=== PATIENT | female | born 1975 | race Caucasian/White ===

== ENCOUNTER 2020-08-30 23:36 | Emergency (ER) | payer BC, OTHER ==
[2020-08-31 03:32] LABS: Urine Blood Negative (Negative); Urine Glucose Negative (Negative); Urine Protein Negative (Negative)
[2020-08-31 03:56] LABS: Absolute Lymphocytes (CBC) 1.5 K/uL (0.7-4.9); Basophils % 1.1 % (0-1.3); Hematocrit 36.9 % (36.0-45.0); Lymphocytes % 23.4 % (15.3-44.8); MPV 9.5 fL (7.6-11.3); RBC Red Blood Cell Count 4.27 M/uL (3.86-4.86)
[2020-08-31 04:11] LABS: Albumin 3.8 g/dL (3.4-5.0); Bilirubin Total 3.6 mg/dL (0.2-1.0); Potassium 4.2 mmol/L (3.5-5.1); Protein, Total 7.4 g/dL (6.4-8.2)
[2020-08-31] MEDS ORDERED: FAMOTIDINE 20 MG/2 ML VIAL IV ONE (05:00)
[2020-08-31] MEDS ORDERED: ONDANSETRON 4 MG/2 ML VIAL ONE (05:00)
[2020-08-31] MEDS ORDERED: MORPHINE 4 MG/ML SYR ONE (05:00)
[2020-08-31] MEDS ORDERED: NA CHLORIDE 0.9% 1,000 ML ONE (05:00)
--- NOTE | 2020-08-31 08:30 | ER ---
Nurse's Notes [facility] Name: Fifi Peter Age: 45 yrs Sex: Female : 1975 Arrival Date: 08/30/2020 Time: 23:41 Bed 5 Private MD: Diagnosis: Abdominal pain, unspecified;Acute cholecystitis;Other cholelithiasis with obstruction Presentation: 08/30 23:48 Chief complaint: Patient states: "I think I am having gallbladder problems" c/o upper bb abdominal pain with nausea, symptoms started on then again starting yesterday denies vomiting but is nauseous. Coronavirus screen: At this time, the client does not indicate any symptoms associated with coronavirus-19. Ebola Screen: No symptoms or risks identified at this time. Initial Sepsis Screen: Does the patient meet any 2 criteria? No. Patient's initial sepsis screen is negative. Does the patient have a suspected source of infection? No. Patient's initial sepsis screen is negative. Risk Assessment: Do you want to hurt yourself or someone else? Patient reports no desire to harm self or others. Onset of symptoms was August 29, 2020. 23:48 Method Of Arrival: Ambulatory bb 23:48 Acuity: PERICO 3 bb Triage Assessment: 23:50 General: Appears in no apparent distress. uncomfortable, Behavior is calm, cooperative. bb Pain: Complains of pain in abdomen Pain currently is 7 out of 10 on a pain scale. Neuro: Level of Consciousness is awake, alert, obeys commands, Oriented to person, place, time, situation. Cardiovascular: Capillary refill < 3 seconds Patient's skin is warm and dry. Respiratory: Respiratory effort is even, unlabored, Respiratory pattern is regular. GI: Abdomen is non-distended, Reports upper abdominal pain, nausea. Derm: Skin is pink, warm \\T\\ dry. Musculoskeletal: Circulation, motion, and sensation intact. 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 - Social history:: Smoking status: Patient denies any tobacco usage or history of. Patient uses alcohol, occasionally. Patient/guardian denies using street drugs. Screenin/07 03:34 Abuse screen: Denies threats or abuse. Denies injuries from another. Nutritional ad5 screening: No deficits noted. Tuberculosis screening: No symptoms or risk factors identified. Fall Risk None identified. Assessment: 03:33 General: Appears in no apparent distress. Behavior is calm, cooperative, appropriate ad5 for age. Neuro: No deficits noted. Level of Consciousness is awake, alert, obeys commands, Oriented to person, place, time, situation, Appropriate for age. Cardiovascular: No deficits noted. Heart tones present Capillary refill < 3 seconds Patient's skin is warm and dry. Rhythm is regular. Respiratory: No deficits noted. Airway is patent Respiratory effort is even, unlabored, Respiratory pattern is regular, symmetrical, Breath sounds are clear bilaterally. GI: Bowel sounds present X 4 quads. Abdomen is tender to palpation in epigastric area Reports upper abdominal pain, nausea, x 2 days. : No deficits noted. No signs and/or symptoms were reported regarding the genitourinary system. Derm: Skin is pink, warm \\T\\ dry. Musculoskeletal: No deficits noted. No signs and/or symptoms reported regarding the musculoskeletal system. 04:51 Reassessment: Patient appears in no apparent distress at this time. Patient and/or ad5 family updated on plan of care and expected duration. Pain level reassessed. Patient is alert, oriented x 3, equal unlabored respirations, skin warm/dry/pink. 05:51 Reassessment: Patient and/or family updated on plan of care and expected duration. Pain ea level reassessed. Patient is alert, oriented x 3, equal unlabored respirations, skin warm/dry/pink. 06:22 Reassessment: Patient appears in no apparent distress at this time. Patient and/or ad5 family updated on plan of care and expected duration. Pain level reassessed. Patient states feeling better. 07:12 Reassessment: Patient appears in no apparent distress at this time. Patient and/or jd3 family updated on plan of care and expected duration. Pain level reassessed. Patient is alert, oriented x 3, equal unlabored respirations, skin warm/dry/pink. Patient states feeling better. General: Appears in no apparent distress. comfortable, Behavior is calm, cooperative, appropriate for age. Neuro: Level of Consciousness is awake, alert, obeys commands, Oriented to person, place, time, situation. Cardiovascular: Denies chest pain, Capillary refill < 3 seconds Patient's skin is warm and dry. Respiratory: Airway is patent Respiratory effort is even, unlabored, Respiratory pattern is regular, symmetrical. GI: Abd is soft and non tender X 4 quads. Patient currently denies pain at this time. 08:17 Reassessment: Patient appears in no apparent distress at this time. Patient and/or jd3 family updated on plan of care and expected duration. Pain level reassessed. Patient is alert, oriented x 3, equal unlabored respirations, skin warm/dry/pink. 09:30 Reassessment: Patient appears in no apparent distress at this time. Patient and/or jd3 family updated on plan of care and expected duration. Pain level reassessed. Patient is alert, oriented x 3, equal unlabored respirations, skin warm/dry/pink. 10:46 Reassessment: Patient appears in no apparent distress at this time. Patient and/or jd3 family updated on plan of care and expected duration. Pain level reassessed. Patient is alert, oriented x 3, equal unlabored respirations, skin warm/dry/pink. transfer from [facility] awaiting EMS. 11:34 Reassessment: Patient appears in no apparent distress at this time. Patient and/or jd3 family updated on plan of care and expected duration. Pain level reassessed. Patient is alert, oriented x 3, equal unlabored respirations, skin warm/dry/pink. report given to [facility] and Marilynn WEBSTER at [facility]. Vital Signs: 08/30 23:48 BP 135 / 84; Pulse 63; Resp 16 S; Temp 98.1(O); Pulse Ox 100% on R/A; Weight 102.06 kg bb (R); Height 5 ft. 9 in. (175.26 cm) (R); Pain 10; 08/31 03:35 BP 129 / 65; Pulse 55; Resp 16 S; Pulse Ox 99% on R/A; ad5 04:52 BP 135 / 77; Pulse 51; Resp 16 S; Pulse Ox 98% on R/A; ad5 06:21 BP 112 / 74; Pulse 49; Resp 16 S; Pulse Ox 97% on R/A; ad5 07:13 BP 116 / 66; Pulse 60; Resp 17 S; Pulse Ox 100% on R/A; jd3 08:17 BP 118 / 73; Pulse 52; Resp 17 S; Pulse Ox 100% on R/A; jd3 10:47 BP 117 / 69; Pulse 50; Resp 17 S; Pulse Ox 98% on R/A; jd3 08/30 23:48 Body Mass Index 33.23 (102.06 kg, 175.26 cm) ED Course: 08/30 23:41 Patient arrived in ED. ag3 23:50 Triage completed. bb 23:50 Arm band placed on Patient placed in waiting room, Patient notified of wait time. bb 08/31 02:51 Dick Calhoun is Primary Nurse. ad5 03:26 Cuauhtemoc Veloz MD is Attending Physician. [facility] 03:34 Patient has correct armband on for positive identification. Bed in low position. Call ad5 light in reach. Side rails up X 1. Pulse ox on. NIBP on. Door closed. Warm blanket given. Head of bed lowered. 03:34 No provider procedures requiring assistance completed. Initial lab(s) drawn, by mo, ad5 sent to lab. Inserted saline lock: 20 gauge in left antecubital area, using aseptic technique. Blood collected. 05:20 CT Abd/Pelvis - IV Contrast Only In Process Unspecified. EDMS 07:12 Primary Nurse role handed off by Dick Calhoun jd3 07:12 Issa Fermin, RN is Primary Nurse. jd3 07:50 initiated a transfer with Edgar Tom from the [facility]. eb 08:18 Attending Physician role handed off by Cuauhtemoc Veloz MD kdr 08:18 Joaquin Brown MD is Attending Physician. kdr 08:23 connected the hospitalist emissions testing technician for [facility] with Dr. Brown for patient eb transfer consultation. Per Edgar the GI doctor emissions testing technician has accepted the patient without conference. 08:46 administrative approval given by Edgar Santos/ patient has been accepted to [facility] RM [id number] / Dr. Tristin Sanchez has accepted the patient in transfer/ report to be called to the transfer center at [phone]. 11:04 Notified ED physician of a critical lab result(s). Covid Positive. Dr. Brown. 11:38 Patient transferred, IV remains in place. jd3 Administered Medications: 04:45 Drug: NS 0.9% 1000 ml Route: IV; Rate: 1000 ml; Site: left antecubital; ad5 11:38 Follow up: Response: No adverse reaction; IV Status: Completed infusion jd3 04:46 Drug: morphine 4 mg {Note: RASS 0.} Route: IVP; Site: left antecubital; ad5 06:22 Follow up: Response: No adverse reaction; Pain is decreased; RASS: Alert and Calm (0) ad5 04:46 Drug: Zofran (Ondansetron) 4 mg Route: IVP; Site: left antecubital; ad5 06:22 Follow up: Response: No adverse reaction; Nausea is decreased ad5 04:47 Drug: Pepcid (famotidine) 20 mg Route: IVP; Site: left antecubital; ad5 06:22 Follow up: Response: No adverse reaction ad5 08:48 Drug: Zosyn (piperacillin-tazobactam) 3.375 grams Route: IVPB; Infused Over: 60 mins; jd3 Site: left antecubital; 09:40 Follow up: Response: No adverse reaction; IV Status: Completed infusion jd3 Outcome: 08:29 ER care complete, transfer ordered by . kdr 11:37 Transferred by ground EMS to [facility], Transfer form completed. jd3 X-rays sent w/ patient. 11:37 Condition: stable 11:37 Instructed on the need for transfer, Demonstrated understanding of instructions. 11:38 Patient left the ED. jd3 Signatures: Dispatcher [employer] EDMS Joaquin Bronw MD MD kdr Ballard, Brenda, RN RN bb Smirch, Shelby, RN RN ss Adriane Capellan RN RN ea Davies, Jonathon, RN RN jd3 Botello, Elizabeth eb Gomez, Alice 3 Cuauhtemoc Veloz MD MD [facility] Dick Calhoun ad5
--- NOTE | 2020-08-31 08:30 | EDPHYS ---
Physician Documentation [facility] Name: Fifi Peter Age: 45 yrs Sex: Female : 1975 Arrival Date: 08/30/2020 Time: 23:41 Bed 5 Private MD: ED Physician Joaquin Brown HPI: 08/31 04:00 This 45 yrs old Female presents to ER via Ambulatory with complaints of mh7 Abdominal Pain. 04:00 The patient presents with abdominal pain in the epigastric area. Onset: The mh7 symptoms/episode began/occurred 6 day(s) ago. The symptoms do not radiate. Associated signs and symptoms: Pertinent positives: nausea, Pertinent negatives: anorexia, blood in stools, chest pain, constipation, diarrhea, dysuria, fever, headache, hematuria, palpitations, shortness of breath, vaginal discharge, vomiting, vomiting blood. The symptoms are described as intermittent, vague, waxing/waning. Modifying factors: The symptoms are alleviated by nothing, the symptoms are aggravated by food. Severity of pain: At its worst the pain was moderate 2 day(s) ago, in the emergency department the pain has improved moderately. 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 - Social history:: Smoking status: Patient denies any tobacco usage or history of. Patient uses alcohol, occasionally. Patient/guardian denies using street drugs. ROS: 08/31 04:00 Constitutional: Negative for fever, chills, and weight loss, Eyes: Negative for injury, mh7 pain, redness, and discharge, ENT: Negative for injury, pain, and discharge, Neck: Negative for injury, pain, and swelling, Cardiovascular: Negative for chest pain, palpitations, and edema, Respiratory: Negative for shortness of breath, cough, wheezing, and pleuritic chest pain, Back: Negative for injury and pain, : Negative for injury, bleeding, discharge, and swelling, MS/Extremity: Negative for injury and deformity, Skin: Negative for injury, rash, and discoloration, Neuro: Negative for headache, weakness, numbness, tingling, and seizure, Psych: Negative for depression, anxiety, suicide ideation, homicidal ideation, and hallucinations, Allergy/Immunology: Negative for hives, rash, and allergies, Endocrine: Negative for neck swelling, polydipsia, polyuria, polyphagia, and marked weight changes, Hematologic/Lymphatic: Negative for swollen nodes, abnormal bleeding, and unusual bruising. Exam: 04:00 Constitutional: This is a well developed, well nourished patient who is awake, alert, mh7 and in no acute distress. Head/Face: Normocephalic, atraumatic. Eyes: Pupils equal round and reactive to light, extra-ocular motions intact. Lids and lashes normal. Conjunctiva and sclera are non-icteric and not injected. Cornea within normal limits. Periorbital areas with no swelling, redness, or edema. Neck: Trachea midline, no thyromegaly or masses palpated, and no cervical lymphadenopathy. Supple, full range of motion without nuchal rigidity, or vertebral point tenderness. No Meningismus. Chest/axilla: Normal chest wall appearance and motion. Nontender with no deformity. No lesions are appreciated. Cardiovascular: Regular rate and rhythm with a normal S1 and S2. No gallops, murmurs, or rubs. Normal PMI, no JVD. No pulse deficits. Respiratory: Lungs have equal breath sounds bilaterally, clear to auscultation and percussion. No rales, rhonchi or wheezes noted. No increased work of breathing, no retractions or nasal flaring. 04:00 Back: No spinal tenderness. No costovertebral tenderness. Full range of motion. Skin: Warm, dry with normal turgor. Normal color with no rashes, no lesions, and no evidence of cellulitis. MS/ Extremity: Pulses equal, no cyanosis. Neurovascular intact. Full, normal range of motion. Neuro: Awake and alert, GCS 15, oriented to person, place, time, and situation. Cranial nerves II-XII grossly intact. Motor strength 5/5 in all extremities. Sensory grossly intact. Cerebellar exam normal. Normal gait. Psych: Awake, alert, with orientation to person, place and time. Behavior, mood, and affect are within normal limits. 04:00 Abdomen/GI: Inspection: abdomen appears normal, Bowel sounds: normal, in all quadrants, Palpation: mild abdominal tenderness, in the epigastric area, mass, is not appreciated, rebound tenderness, is not appreciated, voluntary guarding, is not appreciated, involuntary guarding, is not appreciated, no appreciated organomegaly, Rectal exam: the exam is deferred, because of patient request, Indicators: McBurney's point is not tender, Miller's sign is negative, Rovsing's sign is negative, Obturator sign is negative, Psoas sign is negative, Liver: no appreciated palpable abnormalities, Hernia: not appreciated. Vital Signs: 08/30 23:48 BP 135 / 84; Pulse 63; Resp 16 S; Temp 98.1(O); Pulse Ox 100% on R/A; Weight 102.06 kg bb (R); Height 5 ft. 9 in. (175.26 cm) (R); Pain 7/10; 08/31 03:35 BP 129 / 65; Pulse 55; Resp 16 S; Pulse Ox 99% on R/A; ad5 04:52 BP 135 / 77; Pulse 51; Resp 16 S; Pulse Ox 98% on R/A; ad5 06:21 BP 112 / 74; Pulse 49; Resp 16 S; Pulse Ox 97% on R/A; ad5 07:13 BP 116 / 66; Pulse 60; Resp 17 S; Pulse Ox 100% on R/A; jd3 08:17 BP 118 / 73; Pulse 52; Resp 17 S; Pulse Ox 100% on R/A; jd3 10:47 BP 117 / 69; Pulse 50; Resp 17 S; Pulse Ox 98% on R/A; jd3 08/30 23:48 Body Mass Index 33.23 (102.06 kg, 175.26 cm) bb MDM: 08:04 Transition of care: After a detail discussion of the patient's case, care is mh7 transferred to Joaquin Brown MD. 08:29 Patient medically screened. kdr 08:29 Data reviewed: vital signs, nurses notes, lab test result(s), radiologic studies. kdr Counseling: I had a detailed discussion with the patient and/or guardian regarding: the historical points, exam findings, and any diagnostic results supporting the discharge/admit diagnosis, lab results, radiology results, the need to transfer to another facility. 08/31 03:16 Order name: CBC with Diff ad5 08/31 03:16 Order name: CMP; Complete Time: 04:26 ad5 08/31 03:16 Order name: Lipase; Complete Time: 04:26 ad5 08/31 03:17 Order name: CBC with Automated Diff; Complete Time: 04:26 EDMS 08/31 03:31 Order name: Urine Dipstick-Ancillary; Complete Time: 04:26 EDMS 08/31 03:59 Order name: Urine --Ancillary (enter results) [facility] 08/31 04:00 Order name: Urine --Ancillary; Complete Time: 06:15 EDMS 08/31 04:25 Order name: CT Abd/Pelvis - IV Contrast Only [facility] 08/31 11:05 Order name: SARS-COV-2 RT PCR [facility] 08/31 03:16 Order name: Urine Dipstick-Ancillary (obtain specimen); Complete Time: 04:00 [facility] 08/31 03:16 Order name: Urine Test (obtain specimen); Complete Time: 04:00 [facility] 08/31 04:27 Order name: EKG - Nurse/Tech; Complete Time: 04:51 [facility] 08/31 08:50 Order name: EKG Electrocardiogram EDMS Administered Medications: 04:45 Drug: NS 0.9% 1000 ml Route: IV; Rate: 1000 ml; Site: left antecubital; ad5 11:38 Follow up: Response: No adverse reaction; IV Status: Completed infusion jd3 04:46 Drug: morphine 4 mg {Note: RASS 0.} Route: IVP; Site: left antecubital; ad5 06:22 Follow up: Response: No adverse reaction; Pain is decreased; RASS: Alert and Calm (0) ad5 04:46 Drug: Zofran (Ondansetron) 4 mg Route: IVP; Site: left antecubital; ad5 06:22 Follow up: Response: No adverse reaction; Nausea is decreased ad5 04:47 Drug: Pepcid (famotidine) 20 mg Route: IVP; Site: left antecubital; ad5 06:22 Follow up: Response: No adverse reaction ad5 08:48 Drug: Zosyn (piperacillin-tazobactam) 3.375 grams Route: IVPB; Infused Over: 60 mins; jd3 Site: left antecubital; 09:40 Follow up: Response: No adverse reaction; IV Status: Completed infusion jd3 Disposition Summary: 08/31/20 08:29 Transfer Ordered Transfer Location: [facility] kdr Reason: Higher level of care kdr Condition: Fair kdr Problem: new kdr Symptoms: have improved kdr Accepting Physician: Laura ()Tu (GI)(08/31/20 11:38) jd3 Diagnosis - Abdominal pain, unspecified kdr - Acute cholecystitis kdr - Other cholelithiasis with obstruction kdr Forms: - Medication Reconciliation Form kdr - SBAR form kdr Signatures: Dispatcher [employer] EDMS Joaquin Brown MD MD kdr Amanda Nesbitt RN RN bb Issa Fermin RN RN jd3 Cuauhtemoc Veloz MD MD [facility] Dick Calhoun Corrections: (The following items were deleted from the chart) 09:50 07:53 CORONAVIRUS+BRZ ordered. EDMS EDMS 11:38 08:29 Laura ()Tu (GI) kdr jd3
[2020-08-31] MEDS ORDERED: NA CHLORIDE 0.9% 100 ML ONE (08:42)
[2020-08-31] MEDS ORDERED: PIPERACIL/TAZO 3.375 GM VIAL IV ONE (08:43)
--- NOTE | 2020-08-31 10:48 | RAD REPORT ---
EXAM DESCRIPTION: CTAbdomen Pelvis W Contrast - 08/31/2020 6:29 am CLINICAL HISTORY: ABD PAIN COMPARISON: None Available. TECHNIQUE: CT of the abdomen and pelvis performed following IV administration of iodinated contras t. This exam was performed according to our departmental dose-optimization program, which includes au tomated exposure control, adjustment of the mA and/or kV according to patient size and/or use of iter ative reconstruction technique. FINDINGS: Lung Bases: The visualized lung bases are clear. Bones: No destructive bone lesions identified. Abdomen: Liver: The liver has normal size and density. No intrahepatic biliary dilatation. Mild periportal tanvir ma. Gallbladder: Multiple calcified gallstones. Mild gallbladder wall thickening. Spleen, Pancreas, and Adrenal Glands: The spleen, pancreas, and adrenal glands are unremarkable. Kidneys: No hydronephrosis or obstructing calculus. Vasculature: The aorta and IVC have normal caliber and position. The portal vein is patent. The pro ximal visceral and renal arteries are patent. Stomach: The stomach and duodenum have normal course. Other: No free intraperitoneal air. No free fluid or lymphadenopathy. Tiny fat-containing umbilic al hernia. Pelvis: Bladder: Urinary bladder is unremarkable. Bowel: No dilated loops of large or small bowel. Scattered diverticula colon. Appendix: Normal appendix. Pelvis: Uterus is not enlarged. IMPRESSION: 1. Cholelithiasis with mild gallbladder wall thickening. These findings could be seen with cholecystitis. Right upper quadrant ultrasound may be helpful. 2. Diverticulosis without evidence of acute diverticulitis. Electronically signed by: Toby Tamayo 08/31/2020 6:11 AM CDT Due to temporary technical issues with the PACS/Fluency reporting system, reports are being signed by the in house radiologist without review as a courtesy to ensure prompt reporting. The interpreting r adiologist is fully responsible for the content of the report.
[2020-08-31 11:45] VITALS: TEMP 98.1
[2020-08-31 11:55] VITALS: BP 117/69; O2SAT 98
--- NOTE | 2020-08-31 12:59 | EKG ---
Test Date: 2020-08-31 Test Time: 04:48:37 Punch Finisher: LINDSEY MEASUREMENT RESULTS: Intervals: Rate: 48 WV: 174 QRSD: 88 QT: 456 QTc: 407 [place]: P: 32 WV: 174 QRS: 40 T: 34 INTERPRETIVE STATEMENTS: Marked sinus bradycardia with sinus arrhythmia Cannot rule out Anterior infarct, age undetermined Abnormal ECG No previous ECG available for comparison Electronically Signed On 08-31-20 12:58:50 CDT by Mikal Ochoa
== END 2020-08-31 11:38 | disposition short-term general hospital (02) ==
LOC: ER 23:36
DX: U07.1 COVID-19 (principal); K80.01 Calculus of gallbladder with acute cholecystitis with obstruction
CPT/HCPCS: 96365; 96361; 93005; 85025; 36415; 81025; 81003; 83690; 80053; 74177; 96375; 99285; U0003; Q9967; J2543; J7030; J2405